=== PATIENT | female | born 1990 | race Asian ===

== ENCOUNTER 2018-05-16 16:50 | Emergency (ER) | payer OTHER ==
--- NOTE | 2018-05-16 17:41 | EDPHY ---
General Time Seen by Provider: 05/16/18 17:22 Narrative: CLINICAL IMPRESSION: Vaginal bleeding in 1st trimester ASSESSMENT/PLAN: 28-year-old female presents to the emergency department with vaginal bleeding in the setting of first-trimester . Patient is , 9 weeks , with reports of bright red vaginal bleeding beginning today. No associated pelvic cramping, abdominal pain, flank pain or UTI symptoms. She is Rh positive Comp stable H&H, normal vital signs, abdomen soft with no focal peritoneal findings and clinically no suggestion of ectopic . Serum HCG quant over 1800. Pelvic ultrasound with gestational sac with yolk yolk sac but no pole at the uterine fundus. Wet prep negative. Vaginal cultures an STD pending. Discussed patient's case with on-call provider for her [facility]. I spoke with Draiusz Trimble, resident, who will relay a message to patient's OBGYN. He recommends repeat ultrasound in 11-12 days. I related these fixed to the patient and her to call OBGYN if she has not heard from them in 24-48 hours. Pelvic rest recommended. Warning signs return to ED sooner outlined in person and discharge papers. DIFFERENTIAL DX: Differential includes but not limited to threatened miscarriage, ectopic , placenta previa, subchorionic hemorrhage, UTI, nephrolithiasis, ureterolithiasis, hemodynamic instability ED PROCEDURES: See lab and/or imaging results below ED COURSE: 8:30 p.m.: Discussed case with Carlos Trimble OBGYN resident with [facility]. He states they would like the patient to have a repeat ultrasound in 11-14 days. No need for repeat quant. They will reach out to the patient for an appointment. I relayed these recommendations to the patient. CHIEF COMPLAINT: Bleeding in HPI: This is a 28-year-old Mandarin female who presents to the emergency department with her for concerns of vaginal bleeding in the setting of . Patient reports she is 9 weeks , has not yet seen an OBGYN although has an appointment with a [facility] finisher in June, and presents to the ED tonight with complaints of bright red blood when wiping for 1 day. Patient reports she has had some brown discharge for the last week. She reports no pelvic cramping or abdominal pain. She and her are trying to get . She is not currently on control. She reports she was treated for bacterial vaginosis a while ago. She does not have any reported prior gynecologic history. No reported abdominal wall trauma or fall. No UTI symptoms PAST MEDICAL HISTORY: None reported See nurse/triage notes for additional history if applicable Pertinent Past Surgical History: None reported Family History: Noncontributory Social History: , here with her REVIEW OF SYSTEMS: All other systems negative Constitutional: No fever, no chills, appetite change. Cardiovascular: No chest pain, no palpitations. Respiratory: No cough, no shortness of breath. Gastrointestinal: No abdominal pain, no vomiting, diarrhea. Genitourinary: No hematuria, dysuria, flank pain, pelvic pain, positive for vaginal bleeding Musculoskeletal: No back pain, joint swelling, joint pain, myalgias. Skin: No rashes, color change. Neurological: No headache, dizziness, weakness. PHYSICAL EXAM: General Appearance: Alert, oriented, appropriate, cooperative, NAD, well hydrated, non-toxic appearing, VSS, no hypoxia. Respiratory: There are no retractions, lungs are clear to auscultation. Cardiac: Regular rate and rhythm, no murmurs or gallops. Gastrointestinal: Abdomen is soft, nontender, bowel sounds normal, no masses/ hernia, no rigidity, guarding or focal peritoneal findings. : Brown discharge noted in vagina. Cervical os closed. No noemí red blood appreciated. No vaginal wall trauma seen. No foreign body Neurological: Alert and oriented x 3, Skin: Warm, dry, no rashes, no nodules on palpation. Psychiatric: Patient is oriented X 3, there is no agitation. MEDICAL DECISION MAKING: Patient was seen independently. Secondary supervising physician at time of evaluation was Dr. Galarza. Diagnosis: Vaginal bleeding in 1st trimester . New, requires workup Summary: See Assessment and Plan for summary of ED visit Clinical lab tests: ordered / reviewed. Independent visualization of images, tracing, or specimens: No. Decision to obtain medical records or history from someone other than the patient: No Review / Summarize previous medical records: None available Discussed patient with another provider: [facility] on-call [facility]BGYN, radiology Patient Progress: Stable. - Diagnostics Imaging Results: Imaging Impressions Obstetrics Ultrasound 05/16/18 18:29 Impression: Presumed gestational sac within the uterine fundus. A yolk sac is seen but there is no evidence of a pole. Recommend short-term follow-up beta hCG with ultrasound evaluation to ensure viable . Findings and recommendations discussed with Buck Nunez at 1939 hour, 05/16/2018. - History Smoking Status: Never smoked - Objective Vital Signs: Initial Vital Signs Temperature (C) 36.7 C 05/16/18 16:54 Heart Rate 82 05/16/18 16:54 Respiratory Rate 17 05/16/18 16:54 Blood Pressure 122/93 H 05/16/18 16:54 O2 Sat (%) 95 05/16/18 16:54 O2 Delivery Mode Room Air Allergies/Adverse Reactions: No Known Allergies Allergy (Unverified 05/16/18 16:52) Home Medications: Medication Instructions Recorded Levothyroxine 05/16/18 Vit No.109/Iron/FA 05/16/18 Laboratory Results: Laboratory Results 05/16/18 17:45 05/16/18 17:45 05/16/18 05/16/18 05/16/18 20:17 20:17 19:23 WBC RBC Hgb Hct MCV MCH MCHC RDW Plt Count MPV Neut % (Auto) Lymph % (Auto) [place] % (Auto) Eos % (Auto) Baso % (Auto) Nucleat RBC Rel Count Absolute Neuts (auto) Absolute Lymphs (auto) Absolute Monos (auto) Absolute Eos (auto) Absolute Basos (auto) Absolute Nucleated RBC Immature Gran % Immature Gran # Sodium Potassium Chloride Carbon Dioxide Anion Gap BUN Creatinine Estimated GFR Glucose Calcium Beta HCG, Quant Urine Color PALE YELLOW Urine Appearance CLEAR Urine pH 6.0 (5.0-7.5) Ur Specific [place] 1.006 (1.002-1.030) Urine Protein NEGATIVE (NEGATIVE) Urine Ketones NEGATIVE (NEGATIVE) Urine Blood 2+ H (NEGATIVE) Urine Nitrate NEGATIVE (NEGATIVE) Urine Bilirubin NEGATIVE (NEGATIVE) Urine Urobilinogen NEGATIVE EU EU (0.2-1.0) Ur Leukocyte Esterase NEGATIVE (NEGATIVE) Urine RBC 5-10 /hpf H /hpf (0-3) Urine WBC 1-3 /hpf /hpf (0-3) Ur Epithelial Cells TRACE /lpf /lpf (NONE-1+) Urine Bacteria 1+ /hpf H /hpf (NONE SEEN) Urine Mucus TRACE /lpf /lpf (NONE-1+) Urine Glucose NEGATIVE (NEGATIVE) Trichomonas (Wet Prep) NO WBC Jelena species DNA Pending C.trachomatis RNA (TMA) Pending Gardnerella DNA Probe Pending N.gonorrhoeae RNA (TMA) Pending Trichomonas DNA Probe Pending Patient ABO/Rh 05/16/18 05/16/18 05/16/18 17:45 17:45 17:45 WBC 10.26 10^3/uL H 10^3/uL (3.80-9.50) RBC 4.77 10^6/uL 10^6/uL (4.18-5.33) Hgb 13.9 g/dL g/dL (12.6-16.3) Hct 42.6 % % (38.0-47.0) MCV 89.3 fL fL (81.5-99.8) MCH 29.1 pg pg (27.9-34.1) MCHC 32.6 g/dL g/dL (32.4-36.7) RDW 12.7 % % (11.5-15.2) Plt Count 275 10^3/uL 10^3/uL (150-400) MPV 10.8 fL fL (8.7-11.7) Neut % (Auto) 73.2 % % (39.3-74.2) Lymph % (Auto) 20.1 % % (15.0-45.0) [place] % (Auto) 5.1 % % (4.5-13.0) Eos % (Auto) 1.1 % % (0.6-7.6) Baso % (Auto) 0.2 % L % (0.3-1.7) Nucleat RBC Rel Count 0.0 % % (0.0-0.2) Absolute Neuts (auto) 7.52 10^3/uL H 10^3/uL (1.70-6.50) Absolute Lymphs (auto) 2.06 10^3/uL 10^3/uL (1.00-3.00) Absolute Monos (auto) 0.52 10^3/uL 10^3/uL (0.30-0.80) Absolute Eos (auto) 0.11 10^3/uL 10^3/uL (0.03-0.40) Absolute Basos (auto) 0.02 10^3/uL 10^3/uL (0.02-0.10) Absolute Nucleated RBC 0.00 10^3/uL 10^3/uL (0-0.01) Immature Gran % 0.3 % % (0.0-1.1) Immature Gran # 0.03 10^3/uL 10^3/uL (0.00-0.10) Sodium 138 mEq/L mEq/L (135-145) Potassium 4.0 mEq/L mEq/L (3.5-5.2) Chloride 105 mEq/L mEq/L (97-110) Carbon Dioxide 23 mEq/l mEq/l (22-31) Anion Gap 10 mEq/L mEq/L (6-14) BUN 9 mg/dL mg/dL (7-23) Creatinine 0.6 mg/dL mg/dL (0.6-1.0) Estimated GFR > 60 Glucose 99 mg/dL mg/dL (70-100) Calcium 10.0 mg/dL mg/dL (8.5-10.4) Beta HCG, Quant 1843.80 mIU/mL H mIU/mL (0.00-4.83) Urine Color Urine Appearance Urine pH Ur Specific [place] Urine Protein Urine Ketones Urine Blood Urine Nitrate Urine Bilirubin Urine Urobilinogen Ur Leukocyte Esterase Urine RBC Urine WBC Ur Epithelial Cells Urine Bacteria Urine Mucus Urine Glucose Trichomonas (Wet Prep) Jelena species DNA C.trachomatis RNA (TMA) Gardnerella DNA Probe N.gonorrhoeae RNA (TMA) Trichomonas DNA Probe Patient ABO/Rh A POSITIVE Departure - Departure Disposition: Home, Routine, Self-Care Clinical Impression: Vaginal bleeding affecting early Condition: Good Instructions: Non-Threatening First Trimester Vaginal Bleed (ED) Additional Instructions: DISCHARGE INSTRUCTIONS FROM YOUR DOCTOR Thank you for visiting our emergency department today. Please keep in mind that discharge from the emergency department does not mean that there is nothing wrong - it simply means that we have not identified an emergency condition that requires further evaluation or treatment in the hospital. You should always plan to follow up with primary care for re-evaluation of your condition in the next 2-3 days. If you have been referred to a specialist, please call as soon as possible (today or tomorrow) to schedule your follow up appointment at the appropriate time. YOUR EVALUATION IN THE EMERGENCY DEPARTMENT INCLUDED AN ULTRASOUND, LAB WORK, AND VAGINAL SWABS. YOUR BLOOD HORMONE LEVEL IS 1843. THE ULTRASOUND SHOWED AN EARLY IN THE UTERUS BUT YOU WILL NEED TO HAVE REPEAT ULTRASOUND IN 11-12 DAYS. YOU DO NOT HAVE A BACTERIAL VAGINAL INFECTION OR YEAST INFECTION. THE [facility] SHOULD BE CALLING YOU FOR AN APPOINTMENT AND 11-12 DAYS. WE SPOKE WITH TEJINDER TRIMBLE WHO SAID HE WOULD ALERT DR. GONSALEZ'S OFFICE. IF YOU DO NOT HEAR FROM THEIR OFFICE IN 1-2 DAYS, PLEASE CALL THEM, LET THEM KNOW YOU WERE IN THE EMERGENCY DEPARTMENT AND YOU NEED AN APPOINTMENT FOR REPEAT ULTRASOUND. DO NOT HAVE INTERCOURSE, DO NOT PUT ANYTHING INTO THE VAGINA, REST AT HOME, NO AGGRESSIVE EXERCISE. PLEASE RETURN TO THE EMERGENCY DEPARTMENT SOONER FOR HEAVY VAGINAL BLEEDING, SHORTNESS OF BREATH, ABDOMINAL PAIN OR CRAMPING, FAINTING EPISODES, OR ANY OTHER CONCERNS. People present with illnesses and injuries in different ways, and it is always possible that we have missed something. You may always return for re-evaluation if symptoms worsen or if they are not improving or if you develop new/different symptoms. Again, thank you for choosing our emergency department. We hope that you feel better. Referrals: Joaquina Torres MD [Primary Care Provider] - As per Instructions Antonia Gonsalez MD [Non Staff Provider ()] - 2-3 days, call for appt.
[2018-05-16 17:55] LABS: PLATELET COUNT 275 10^3/uL (150-400)
[2018-05-16 21:15] VITALS: BP 120/89
[2018-05-17 12:51] LABS: GC AMPLIFICATION GENPROBE NEGATIVE (NEGATIVE)
== END 2018-05-16 21:15 | disposition home or self-care (01) ==
DX: O26.851 Spotting complicating pregnancy, first trimester (principal); Z3A.09 9 weeks gestation of pregnancy

== ENCOUNTER 2018-05-17 16:45 | Emergency (ER) | payer OTHER ==
--- NOTE | 2018-05-17 16:56 | EDPHY ---
"H & P Stated Complaint: Vaginal Bleeding and Pain Time Seen by Provider: 05/17/18 16:54 - Personal History LMP (Females 10-55): Current Tetanus Diphtheria and Acellular Pertussis (TDAP): Yes - Medical/Surgical History Hx Asthma: No Hx Chronic Respiratory Disease: No Hx Diabetes: No Hx Cardiac Disease: No Hx Renal Disease: No Hx Cirrhosis: No Hx Alcoholism: No Hx HIV/AIDS: No Hx Splenectomy or Spleen Trauma: No Other PMH: denies - Social History Smoking Status: Never smoked Constitutional: Initial Vital Signs Temperature (C) 36.9 C 05/17/18 16:52 Heart Rate 88 05/17/18 16:52 Respiratory Rate 18 05/17/18 16:52 Blood Pressure 135/79 H 05/17/18 16:52 O2 Sat (%) 95 05/17/18 16:52 O2 Delivery Mode Room Air Allergies/Adverse Reactions: No Known Allergies Allergy (Unverified 05/16/18 16:52) Home Medications: Medication Instructions Recorded Levothyroxine 05/16/18 Vit No.109/Iron/FA 05/16/18 Medical Decision Making - Diagnostics Imaging Results: Imaging Impressions Obstetrics Ultrasound 05/17/18 17:00 Impression: 1. In the lower uterine segment, there appears to be a very small gestational sac and yolk sac. No pole. 2. This might be very early and continued follow up is suggested. 3. The low location of the implantation might be concerning. Findings and recommendations discussed with Jude Naylor MD, at 6:00 PM, 2018. Final report concurs with initial preliminary interpretation. Imaging: Discussed imaging studies w/ call out operator Radiologist ED Course/Re-evaluation: CHIEF COMPLAINT: Vaginal bleeding, abdominal pain HISTORY OF PRESENT ILLNESS: This patient is a 28 year old female who is 9 weeks with her first . She was evaluated yesterday for threatened miscarriage after one day of bright red vaginal bleeding. Yesterday, she had a pelvic US which showed gestational sac with yolk yolk sac but no pole at the uterine fundus. She was noted to be Rh positive. OB was consulted and she was recommended to follow up in 11 days for repeat ultrasound. Today, she returns to the emergency department after increased bleeding with the presence of dark red clots. She reports increasing pelvic/abdominal discomfort today. She does not have any reported prior gynecologic history. No reported abdominal wall trauma or fall. No UTI symptoms. No fever, headache, chest pain, shortness of breath, or other associated symptoms. REVIEW OF SYSTEMS: A comprehensive 10 system review of systems is otherwise negative aside from elements mentioned in the history of present illness and medical decision making. PHYSICAL EXAM: HR, BP, O2 Sat, RR. Temp noted General Appearance: Alert, well hydrated, appropriate, and non-toxic appearing. Head: Atraumatic without scalp tenderness or obvious injury Eyes: Pupils equal, round, reactive to light and accommodation, EOMI, no trauma , no injection. Ears: Clear bilaterally, no perforation, normal landmarks Nose: Atraumatic, no rhinorrhea, clear. Throat: There is no erythema or exudates, no lesions, normal tonsils, mucus membranes moist. Neck: Supple, 2+ carotid upstroke, nontender, no lymphadenopathy. Respiratory: No retractions, no distress, no wheezes, and no accessory muscle use. Lungs are clear to auscultation bilaterally. Cardiovascular: Regular rate and rhythm, no murmurs, rubs, or gallops. Bilateral carotid, radial, dorsalis pedis, and posterior tibial pulses intact. Good capillary refill all extremities. Gastrointestinal: Abdomen is soft, nontender, non-distended, no masses, no rebound, no guarding, no peritoneal signs. Musculoskeletal: Normal active ROM of all extremities, atraumatic. Neurological: Alert, appropriate, and interactive. The patient has normal DTRs and non-focal cranial nerves, motor, sensory, and cerebellar exam. Skin: No rashes, good turgor, no nodules on palpation. Past medical history: Currently 9 weeks Past surgical history: Noncontributory Family history: Noncontributory Social history: Student. . at bedside. Does not abuse tobacco, drugs, or alcohol. DIAGNOSTICS/PROCEDURES/CRITICAL CARE TIME: Study: Ultrasound of the: Pelvis 3 weeks Indication: Vaginal bleeding cramping Results: US scan of the pelvis was obtained. The results of the study are threatened miscarriage. The study was read by the radiologist, Dr. Kingsley Beck. I viewed the images myself on the PACS system. DIFFERENTIAL DIAGNOSIS: The differential diagnosis for the patient's vaginal bleeding included but was not limited to ectopic , menses, miscarriage , and dysfunctional uterine bleeding. MEDICAL DECISION MAKING: This patient was here yesterday. She was appropriately worked up and is Rh positive. She was diagnosed with a threatened miscarriage yesterday. Today she presented with a little more bleeding and a little more cramping. She has not established care with OB yet and is currently being seen by family practice. Consequently, she came back for further evaluation. She also has a small amount of expelled products in a test tube to show me. Patient's CBC is normal. Ultrasound today shows further progression of a threatened AB. I have called her OB doc to follow her up in the next 1-2 days. 18:[address] Edwards, pediatric physician assistant dairy feed sales consultant for [facility]. She will help to arrange appropriate followup for this patient. Reassessed patient. I discussed today's results as well as the plan for followup with the patient and her . Plan to discharge home in good condition. Return precautions discussed including for severe pain or heavy bleeding (soaking one or more pads per hour). Their questions were answered appropriately. She and her understand and are comfortable with this plan. - Data Points Laboratory Results: Laboratory Results 05/17/18 17:25 05/17/18 05/17/18 17:25 17:25 WBC 9.70 10^3/uL H 10^3/uL (3.80-9.50) RBC 4.91 10^6/uL 10^6/uL (4.18-5.33) Hgb 14.3 g/dL g/dL (12.6-16.3) Hct 44.0 % % (38.0-47.0) MCV 89.6 fL fL (81.5-99.8) MCH 29.1 pg pg (27.9-34.1) MCHC 32.5 g/dL g/dL (32.4-36.7) RDW 12.8 % % (11.5-15.2) Plt Count 267 10^3/uL 10^3/uL (150-400) MPV 10.8 fL fL (8.7-11.7) Neut % (Auto) 75.4 % H % (39.3-74.2) Lymph % (Auto) 19.0 % % (15.0-45.0) [place] % (Auto) 4.3 % L % (4.5-13.0) Eos % (Auto) 0.9 % % (0.6-7.6) Baso % (Auto) 0.2 % L % (0.3-1.7) Nucleat RBC Rel Count 0.0 % % (0.0-0.2) Absolute Neuts (auto) 7.31 10^3/uL H 10^3/uL (1.70-6.50) Absolute Lymphs (auto) 1.84 10^3/uL 10^3/uL (1.00-3.00) Absolute Monos (auto) 0.42 10^3/uL 10^3/uL (0.30-0.80) Absolute Eos (auto) 0.09 10^3/uL 10^3/uL (0.03-0.40) Absolute Basos (auto) 0.02 10^3/uL 10^3/uL (0.02-0.10) Absolute Nucleated RBC 0.00 10^3/uL 10^3/uL (0-0.01) Immature Gran % 0.2 % % (0.0-1.1) Immature Gran # 0.02 10^3/uL 10^3/uL (0.00-0.10) Beta HCG, Quant 1236.90 mIU/mL H mIU/mL (0.00-4.83) Departure - Departure Disposition: Home, Routine, Self-Care Clinical Impression: Threatened in first trimester Condition: Good Instructions: Threatened Miscarriage (ED) Additional Instructions: Follow up with your OB doctor. Call the office tomorrow for an appointment. The pediatric physician assistant provider I spoke with today is: Gayatri Edwards MD | [facility] CHILDCARE PROVIDER [facility] [address] [place] [address] Return to the emergency department for fever, severe pain, heavy bleeding ( soaking one pad per hour as we discussed), or other worsening of condition. Referrals: Joaquina Torres MD [Primary Care Provider] - As per Instructions Antonia Antonio MD [Non Staff Provider ()] - As per Instructions Report Scribed for: Jude Naylor Report Scribed by: Chana Pierce Date of Report: 05/17/18 Time of Report: 18:35"
[2018-05-17 17:36] LABS: PLATELET COUNT 267 10^3/uL (150-400)
[2018-05-17 18:53] VITALS: BP 130/78
== END 2018-05-17 18:53 | disposition home or self-care (01) ==
DX: O20.0 Threatened abortion (principal); Z3A.09 9 weeks gestation of pregnancy